=== PATIENT | female | born 1940 | race African-American/Black ===

== ENCOUNTER → 2017-01-22 | Outpatient (CLI) | payer OTHER ==
[~2017-01-22] VITALS: Ht 160 cm; Wt 86.2 kg
[~2017-01-22] MED LIST: ACID CONTROL75 MG PO; ALIGN4 MG PO; ALTACE5 M1 PO; AMBIEN; AMBIEN 10 MG TA10 MG; AMBIEN 10 MG TA10 MG PO; AMBIEN PO; AMLODIPINE BESY10 MG PO; AMOXICILLIN 50500 M1 PO; ANASPAZ0.125 MG SL; ASA81BEC PO; BASE, PCCA RAPID1 GM; CARAFATE 1 GM TA1 G1 PO; CIPROFLOXACIN500 M1 PO; CLEOCIN HCL300 MG PO; COLACE100 MG OR; COLACE100 MG PO; COMBIGAN EYE DR10 ML; COMBIGAN EYE DR10 ML OPHTHALMIC; CRESTOR10 MG PO; DIAZEPAM 5 MG5 MG PO; DOXYCYCLINE 10100 M1 OR; GABAPENTIN100 MG PO; GLUCOPHAGE; GLUCOPHAGE1000 MG PO; GLUCOPHAGE500 MG; GLUCOPHAGE500 MG OR; GLUCOPHAGE500 MG PO; HYDROCODON-ACE1 EAC5 PO; HYDROCODON-ACE1 EAC7 PO; HYDROCODON-ACE1 EAC8 PO; HYDROCODONE-AP1 EAC6 PO; LEVAQUIN 500 M500 MG PO; LIDODERM; LIPITOR 20 MG T20 M1 PO; LOPRESSOR 50 MG50 M1 PO; LOSARTAN POTAS100 MG PO; LOSARTAN POTASS50 MG PO; LOVASTATIN 20 M20 MG PO; MAGNESIUM CITR296 ML PO; MEDROL DOSPAK21 TAB; MIRALAX255 GM PO; NEURONTIN 300300 M1 PO; NEURONTIN600 MG; NEURONTIN600 MG PO; NORCO 10-325 T1 EACH PO; NORCO 5-325 TA1 EACH PO; NOVOLOG100 UNIT/1; OMEPRAZOLE40 MG PO; ONDANSETRON HCL4 M2 PO; OXECTA5 MG; PENICILLIN V P500 MG PO; PEPCID40 MG PO; PERCOCET 10-321 EACH PO; PERCOCET 5-3251 EACH PO; PIOGLITAZONE15 MG; PLAVIX 75 MG TA75 M1 PO; PLAVIX 75 MG TA75 MG PO; PLENDIL10 MG PO; PRAVACHOL40 MG OR; TESSALON PERLE100 MG; TESSALON PERLE100 MG PO; TRAVATAN Z5 ML OPHTHALMIC; TUSSIONEX PENN473 ML PO; TYLENOL325 MG PO; VENTOLIN HFA 1818 GM INH; VIBRAMYCIN 100100 M2 PO; VICODIN; VITAMIN D1000 UNI1 OR; VITAMIN D31000 UNI2 PO; VOLTAREN GEL 1100 G1; XANAX 1 MG TABLE1 MG PO; XANAX1 MG PO; ZANTAC 150MG T150 MG PO; ZOCOR40 MG PO; ZOFRAN ODT4 MG PO; ZOLPIDEM TARTRA10 MG PO; ZPAK PO
--- NOTE | ~2017-01-22 | S ---
[facility] [place] [address] SURGICAL PATH RPT PROCEDURE Name: LORETTA ELAM Room #: REG CLYevgeniy MJeo.#: [id number] Admission: 01/22/17 Date of : 42 Discharge: Report #: [id number] Path Case #: [id number] PATHOLOGY REPORT COLLECTION DATE: 01/22/2017 RECEIVED DATE: 01/22/2017 SUBMITTING PHYS: Dr. Jl Melendez OTHER PHYS: Dr. Brooks Pettit SPECIMEN(S) RECEIVED: A.Polyp bx ascending colon B.Polyp bx sigmoid colon * * * * * * * * * * * * FINAL DIAGNOSIS: A. Polyp, ascending colon polyp, endoscopic biopsy: - Tubular adenoma. - Negative for high-grade dysplasia. B. Polyp, sigmoid colon, endoscopic biopsy: - Hyperplastic polyp. - Negative for dysplasia. (IUV:mgr; d/t: 01/25/17) PATHOLOGIST: Darlin Miller M.D. REPORT ELECTRONICALLY SIGNED BY: Darlin Miller M.D. DATE/TIME: 01/25/2017 16:09 * * * * * * * * * * * * GROSS PATHOLOGY: A. Received in formalin labeled "Loertta Elam, polyp biopsy ascending colon," are 2 segments of pinzon soft tissue measuring 0.4 x 0.3 x 0.2 cm in aggregate dimensions and ranging from 0.2 to 0.4 cm in maximum dimension. The specimen is submitted entirely in cassette A1. B. Received in formalin labeled "Loretta Jed, polyp biopsy sigmoid colon," is a segment of pinzon soft tissue measuring 0.4 cm in maximum dimension. The specimen is submitted entirely in cassette B1. (KAH; 01/22/2017) CLINICAL HISTORY: Pre-op diagnosis: Screening, family history of CCA Post-op diagnosis: Polyp INITIAL CPT CODE(S): A; [address] [facility] [place] [address] SURGICAL PATH RPT PROCEDURE Name: LORETTA ELAM Room #: REG CLI Lucia#: [id number] Admission: 01/22/17 Date of : 42 Discharge: Report #: [id number] Path Case #: [id number]; [id number] Professional services performed by [facility] at [address], [place] [address] Technical services performed by [facility] at [address] [place] [address], [facility] [address] [address]. [facility] [address] [place] [address] PHONE: [phone] DIRECTOR: Sonu Cornelius M.D. * * * END OF REPORT * * *
--- NOTE | ~2017-01-22 | P ---
[facility] [place] [address] PROCEDURE REPORT Name: MARSHALL ELAM Room #: REG [facility]#: [id number] Admission: 01/22/17 Attend Phys: Jl Mcknight Discharge: Date of : 42 Report #: [id number] THIS REPORT FOR: //name// CC: Jl Pettit MD DATE OF SERVICE: 01/22/2017 PROCEDURE PERFORMED: Colonoscopy with biopsies. HISTORY OF PRESENT ILLNESS: The patient is a 76-year-old female who presents today for screening colonoscopy. She has family history of colon cancer in her sister. Last colonoscopy was 5 years ago, was essentially negative. The patient denies any symptoms other than constipation at times. DESCRIPTION OF PROCEDURE: The risks and benefits of the procedure were explained to the patient, those risks including but not limited to bleeding, perforation, the risk of sedation. She understood these risks and gave informed consent. Sedation was given using propofol per anesthesia. Next, a digital rectal exam was initially performed, which was normal. Next, using a standard InspireMDinon colonoscope, the scope was placed in the patient's anus and advanced under direct vision to the cecum. The overall prep was good. Cecum and ileocecal valve were normal in appearance. In the ascending colon, a 3 mm sessile polyp was noted. This was removed with cold forceps, otherwise normal. Transverse, descending colon were normal. Multiple diverticula were noted in the sigmoid colon, no evidence of inflammation. Another 3 mm sessile polyp was noted in the sigmoid colon. This was also removed by cold forceps. The rectal mucosa was normal. On retroflexion, small nonbleeding internal hemorrhoids were noted, otherwise normal colonoscopy. The scope was then withdrawn and the procedure terminated. The patient tolerated the procedure well. IMPRESSION: 1. Two small colonic polyps. 2. Sigmoid diverticulosis. 3. Small internal hemorrhoids. 4. Otherwise, normal colonoscopy. RECOMMENDATIONS: 1. Await biopsy results. 2. Repeat colonoscopy in [address] [address] PROCEDURE REPORT Name: MARSHALL ELAM Room #: REG Yevgeniy Myers#: [id number] Admission: 01/22/17 Attend Phys: Jl Mcknight Discharge: Date of : 42 Report #: [id number] Thank you for allowing me to participate in her care. <ELECTRONICALLY SIGNED> By: Jl Melendez MD 01/22/17 1628 1055 1245 Jl Melendez MD /nt
== END ==
LOC: GI 08:16
DX: Z12.11 Encounter for screening for malignant neoplasm of colon (principal); K63.5 Polyp of colon; K57.30 Diverticulosis of large intestine without perforation or abscess without bleeding; K64.8 Other hemorrhoids; I10 Essential (primary) hypertension; K21.9 Gastro-esophageal reflux disease without esophagitis; M46.90 Unspecified inflammatory spondylopathy, site unspecified; E11.9 Type 2 diabetes mellitus without complications; F17.200 Nicotine dependence, unspecified, uncomplicated; Z86.73 Personal history of transient ischemic attack (TIA), and cerebral infarction without residual deficits; Z90.710 Acquired absence of both cervix and uterus
CPT/HCPCS: 62110; 62900

== ENCOUNTER 2017-02-09 15:04 | Emergency (ER) | payer OTHER ==
[~2017-02-09] VITALS: Ht 157.5 cm; Wt 83.9 kg
[2017-02-09 15:26] LABS: URINE BILIRUBIN NEGATIVE (Negative); URINE BLOOD TRACE (Negative); URINE COLOR YELLOW; URINE GLUCOSE-RANDOM* NEGATIVE (Negative); URINE KETONES NEGATIVE (Negative); URINE LEUKOCYTES-REFLEX 2+ (Negative); URINE PROTEIN (DIPSTICK) NEGATIVE (Negative); URINE UROBILINOGEN 0.2 E.U./dl (0.2-1.0)
[2017-02-09 15:33] LABS: ABSOLUTE NEUTROPHILS 2.4 thou/uL (1.4-8.2); EOSINOPHILS 2.9 % (0.0-3.0); HEMATOCRIT 40.6 % (37.0-47.0); HEMOGLOBIN 13.3 gm/dL (12.0-15.0); LYMPHOCYTES 32.9 % (24.0-44.0); MCHC 32.8 g/dL (28.0-37.0); MCV 94.5 fL (80.0-100.0); MONOCYTES 9.3 % (1.0-8.0); PLATELET COUNT 203 thou/uL (150-400); POLYS 53.9 % (36.0-66.0); RDW 16.7 % (10.5-14.5); WBC 4.5 thou/uL (4.0-11.0)
[2017-02-09 15:35] LABS: MANUAL DIFF NO
[2017-02-09 15:36] LABS: SQUAMOUS >10 Many /LPF (0-3)
[2017-02-09 15:37] LABS: CASTS None Seen /LPF (None Seen); CRYSTALS None Seen /LPF (None Seen); URINE RBC 0-2 Rare /HPF (0-2); URINE WBC-REFLEX 6-15 Few /HPF (0-5)
[2017-02-09 15:38] LABS: RENAL EPITHELIAL CELLS 0-3 Few /LPF (None Seen); TRANSITIONAL EPITHEL CELL 0-3 Few /LPF (None Seen)
[2017-02-09 15:47] LABS: CALCIUM 8.9 mg/dL (8.5-10.1); CREATININE 0.9 mg/dL (0.6-1.0); POTASSIUM 3.7 mmol/L (3.5-5.1)
[2017-02-09 15:51] LABS: ALBUMIN 3.7 g/dL (3.4-5.0); TOTAL BILIRUBIN 0.4 mg/dL (<0.1-1.0); TOTAL PROTEIN 6.9 g/dL (6.4-8.2)
[2017-02-09] MEDS ORDERED: COLACE100 MG PO (18:04)
[2017-02-09] MEDS ORDERED: BENTYL 20 MG TA20 M1 PO (18:04)
== END 2017-02-09 18:19 | disposition home or self-care (01) ==
LOC: ER 15:04
PROVIDERS: Emergency Medicine
DX: R10.9 Unspecified abdominal pain (principal); I10 Essential (primary) hypertension; K21.9 Gastro-esophageal reflux disease without esophagitis; E11.40 Type 2 diabetes mellitus with diabetic neuropathy, unspecified; G25.81 Restless legs syndrome; M79.7 Fibromyalgia; M19.90 Unspecified osteoarthritis, unspecified site; Z86.73 Personal history of transient ischemic attack (TIA), and cerebral infarction without residual deficits; Z90.49 Acquired absence of other specified parts of digestive tract; Z90.710 Acquired absence of both cervix and uterus; Z88.5 Allergy status to narcotic agent; Z91.040 Latex allergy status; Z88.8 Allergy status to other drugs, medicaments and biological substances

== ENCOUNTER → 2017-02-15 | Outpatient (CLI) | payer OTHER ==
[~2017-02-15] MED LIST changes: +BENTYL 20 MG TA20 M1 PO
== END ==
LOC: ULTRA 09:41
DX: N64.4 Mastodynia (principal)

== ENCOUNTER 2017-05-31 12:44 | Emergency (ER) | payer OTHER ==
[~2017-05-31] VITALS: Ht 157.5 cm; Wt 85.7 kg
--- NOTE | ~2017-05-31 | EKG ---
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 Supervisor: [id number] : 1940 Requested By: Ophelia Smith Order Number: [id number] MD: Miguel Alcantara Measurements Intervals [place] Rate: 74 P: 74 CT: 158 QRS: 66 QRSD: 87 T: 32 QT: 389 QTc: 432 Interpretive Statements Sinus rhythm No significant abnormality Compared to ECG 08/20/2016 20:18:39 No significant change was found Electronically Signed On 06-01-2017 13:07:25 CDT by Miguel Alcantara [email or web address] <ELECTRONICALLY SIGNED> By: Miguel Alcantara MD, [facility] 06/01/17 1307 1357 56 Miguel Alcantara MD, FACC /EPI
[2017-05-31] MEDS ORDERED: ALIGN4 MG PO (13:12)
[2017-05-31 13:56] LABS: ABSOLUTE NEUTROPHILS 2.2 thou/uL (1.4-8.2); BASOPHILS 1.1 % (0.0-2.0); HEMATOCRIT 37.8 % (37.0-47.0); HEMOGLOBIN 12.4 gm/dL (12.0-15.0); LYMPHOCYTES 28.4 % (24.0-44.0); MCH 30.9 pg (26.0-34.0); MCHC 32.8 g/dL (28.0-37.0); MCV 94.4 fL (80.0-100.0); MONOCYTES 9.5 % (1.0-8.0); PLATELET COUNT 167 thou/uL (150-400); RBC 4.01 mil/uL (4.20-5.00); RDW 16.3 % (10.5-14.5); WBC 3.9 thou/uL (4.0-11.0)
[2017-05-31 13:59] LABS: MANUAL DIFF NO
[2017-05-31 14:04] LABS: ANION GAP 3 mmol/L (7-16); BUN 11 mg/dL (7-18); CALCIUM 9.3 mg/dL (8.5-10.1); CHLORIDE 109 mmol/L (98-107); CO2 33 mmol/L (21-32); CREATININE 1.1 mg/dL (0.6-1.0); GLUCOSE 166 mg/dL (74-106); POTASSIUM 4.4 mmol/L (3.5-5.1); SODIUM 145 mmol/L (136-145)
[2017-05-31 14:13] LABS: TROPONIN-I < 0.04 ng/mL (<0.04-0.07)
[2017-05-31] MEDS ORDERED: GUAIFEN-CODEINE10 ML PO (14:47)
== END 2017-05-31 15:15 | disposition home or self-care (01) ==
LOC: ER 12:44
PROVIDERS: Emergency Medicine
DX: J06.9 Acute upper respiratory infection, unspecified (principal); I10 Essential (primary) hypertension; K21.9 Gastro-esophageal reflux disease without esophagitis; M79.7 Fibromyalgia; E11.40 Type 2 diabetes mellitus with diabetic neuropathy, unspecified; G25.81 Restless legs syndrome; J44.9 Chronic obstructive pulmonary disease, unspecified; M19.90 Unspecified osteoarthritis, unspecified site; F17.210 Nicotine dependence, cigarettes, uncomplicated; Z90.49 Acquired absence of other specified parts of digestive tract; Z90.710 Acquired absence of both cervix and uterus; Z86.73 Personal history of transient ischemic attack (TIA), and cerebral infarction without residual deficits; Z88.5 Allergy status to narcotic agent; Z88.8 Allergy status to other drugs, medicaments and biological substances; Z88.2 Allergy status to sulfonamides; Z91.040 Latex allergy status

== ENCOUNTER 2017-10-22 17:04 | Emergency (ER) | payer OTHER ==
[~2017-10-22] VITALS: Ht 157.5 cm; Wt 86.2 kg
[~2017-10-22 17:04] MED LIST changes: +GUAIFEN-CODEINE10 ML PO
[2017-10-22 17:05] VITALS: BP 157/88
[2017-10-22] MEDS ORDERED: NAPROSYN500 MG PO (17:28)
[2017-10-22] MEDS ORDERED: HYDROCODONE-AP1 EAC6 PO (17:28)
[2018-05-31] MEDS ORDERED: PLAVIX 75 MG TA75 M1 PO (16:42)
[2018-06-03] MEDS ORDERED: HYOSCYAMINE0.125 M1 SUBLING (18:26)
[2018-06-03] MEDS ORDERED: COLACE100 MG PO (18:29)
[2018-06-03] MEDS ORDERED: BISACODYL SUPP10 MG RECTAL (18:29)
[2018-06-03] MEDS ORDERED: SENNA8.6 MG PO (18:29)
[2018-06-03] MEDS ORDERED: CITRATE OF MAG296 M1 PO (18:29)
[2018-06-03] MEDS ORDERED: ULTRACET TABLET1 TAB PO (18:30)
[2018-06-05] MEDS ORDERED: MIRALAX17 GM PO (13:04)
== END 2017-10-22 17:37 | disposition home or self-care (01) ==
LOC: ER 17:04
DX: M70.22 Olecranon bursitis, left elbow (principal); I10 Essential (primary) hypertension; K21.9 Gastro-esophageal reflux disease without esophagitis; M19.90 Unspecified osteoarthritis, unspecified site; M79.7 Fibromyalgia; E11.40 Type 2 diabetes mellitus with diabetic neuropathy, unspecified; G25.81 Restless legs syndrome; F17.210 Nicotine dependence, cigarettes, uncomplicated; Z88.5 Allergy status to narcotic agent; Z90.710 Acquired absence of both cervix and uterus; Z90.49 Acquired absence of other specified parts of digestive tract; Z86.73 Personal history of transient ischemic attack (TIA), and cerebral infarction without residual deficits; Z88.2 Allergy status to sulfonamides; Z91.040 Latex allergy status; Z88.8 Allergy status to other drugs, medicaments and biological substances; Y93.89 Activity, other specified

== ENCOUNTER 2018-10-10 19:38 | Inpatient (IN) | payer OTHER ==
[~2018-10-10] VITALS: Ht 157.5 cm; Wt 86.1 kg
[~2018-10-10 19:38] MED LIST changes: +BISACODYL SUPP10 MG RECTAL; +CITRATE OF MAG296 M1 PO; +HYOSCYAMINE0.125 M1 SUBLING; +MIRALAX17 GM PO; +NAPROSYN500 MG PO; +SENNA8.6 MG PO; +ULTRACET TABLET1 TAB PO
[2018-10-10 19:39] VITALS: BP 132/64
[2018-10-10 20:45] LABS: ABSOLUTE NEUTROPHILS 3.8 thou/uL (1.4-8.2); BASOPHILS 0.5 % (0.0-2.0); EOSINOPHILS 2.1 % (0.0-3.0); HEMATOCRIT 40.4 % (37.0-47.0); HEMOGLOBIN 13.6 gm/dL (12.0-15.0); LYMPHOCYTES 26.6 % (24.0-44.0); MCH 31.8 pg (26.0-34.0); MCHC 33.6 g/dL (28.0-37.0); MCV 94.9 fL (80.0-100.0); MONOCYTES 8.3 % (1.0-8.0); PLATELET COUNT 170 thou/uL (150-400); POLYS 62.5 % (36.0-66.0); RBC 4.26 mil/uL (4.20-5.00); RDW 16.9 % (10.5-14.5); WBC 6.1 thou/uL (4.0-11.0)
[2018-10-10 20:49] LABS: ANION GAP 7 mmol/L (7-16); BUN 13 mg/dL (7-18); CALCIUM 9.2 mg/dL (8.5-10.1); CHLORIDE 104 mmol/L (98-107); CO2 31 mmol/L (21-32); CREATININE 0.9 mg/dL (0.6-1.0); GLUCOSE 103 mg/dL (74-106); POTASSIUM 3.2 mmol/L (3.5-5.1); SODIUM 142 mmol/L (136-145)
[2018-10-10 20:58] LABS: ALBUMIN 3.8 g/dL (3.4-5.0); SGOT 12 U/L (15-37); SGPT 14 U/L (30-65); TOTAL BILIRUBIN 0.5 mg/dL (<0.1-1.0); TOTAL PROTEIN 7.1 g/dL (6.4-8.2); TROPONIN-I <0.06 ng/mL (<0.06)
[2018-10-10 21:03] VITALS: BP 128/65
[2018-10-10 22:10] VITALS: BP 131/59
[2018-10-10 22:27] VITALS: BP 131/59
[2018-10-10 23:00] VITALS: BP 133/61
[2018-10-11] MEDS ORDERED: ZETIA10 MG PO (01:29)
[2018-10-11 02:39] LABS: ANION GAP 5 mmol/L (7-16); BUN 14 mg/dL (7-18); CALCIUM 9.2 mg/dL (8.5-10.1); CHLORIDE 106 mmol/L (98-107); CO2 33 mmol/L (21-32); GLUCOSE 120 mg/dL (74-106); POTASSIUM 3.6 mmol/L (3.5-5.1); SODIUM 144 mmol/L (136-145)
[2018-10-11 02:44] LABS: CHOLESTEROL 150 mg/dL (<200); HDL CHOLESTEROL 73 mg/dL (>40); LDL CHOLESTEROL 66 mg/dL (<100); TC:HDL 2.1 Ratio (Not establshd); TRIGLYCERIDE 58 mg/dL (<150); TROPONIN-I <0.06 ng/mL (<0.06); VLDL 12 mg/dL (<40)
[2018-10-11 03:02] LABS: SERUM ASSESSMENT Clear
[2018-10-11 04:45] VITALS: BP 134/63
--- NOTE | 2018-10-11 06:58 | NUR ---
ASSUMED PT CARE AT 1900 WITH BEDSIDE REPORT TAKE, PT IS ALERT AND ORIENTED WITH NO SIGN OF DISTRESS NOTED IN PT. DENIES ANY NEED AT THIS TIME. PT IS SITTING ON THE CHAIR WITH PT STABLE SCHEDULED MED ADMINISTERED TO PT, PT'S BLOOD SUGAR IS CHECKED AND INTERVENTION DONE. PT IS STABLE. PT IS STILL IN AFIB, DENIES ANY FURTHER NEEDS AT THIS TIME.
--- NOTE | 2018-10-11 07:24 | NUR ---
PT WAS AN ER ADMIT AT 2245 WITH CHEST PAIN, PT IS ALERT AND ORIENTED WITH NO SIGN OF DISTRESS NOTED. MORPHINE ADMINISTERED TO PT FOR CHEST PAIN. ADMISSION ASSESSMENT AND EDUCATION COMPLETED. DENIES ANY FURTHER NEEDS AT THIS TIME.
[2018-10-11 08:10] VITALS: BP 118/50
--- NOTE | 2018-10-11 13:12 | EKG ---
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
--- NOTE | 2018-10-11 13:13 | EKG ---
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
--- NOTE | 2018-10-11 13:23 | 2DMMODE ---
[facility] [address] [place] [address] 2 D/M-MODE ECHOCARDIOGRAM Name: MARSHALL ELAMARET Room #: 209-P ADM IN ..#: [id number] Admission: 10/10/18 Attend Phys: Haim Diaz MD Discharge: Date of : 42 Date of Service: 10/11/18 1323 Report #: [id number] THIS REPORT FOR: //name// APPROVED REPORT Study performed: 10/11/2018 10:24:26 EXAM: Comprehensive 2D, Doppler, and color-flow Echocardiogram Patient Location: Bedside Room #: 209 Status: routine BSA: 1.87 HR: 70 bpm BP: 118/50 mmHg Rhythm: NSR Other Information Study Quality: Adequate Indications COPD Diabetes CAD Chest Pain Hypertension/HDD 2D Dimensions RVDd: 38.78 mm IVSd: 8.73 (7-11mm) LVOT Diam: 18.59 (18-24mm) LVDd: 40.32 mm PWd: 9.04 (7-11mm) Ascending Ao: 29.58 (22-36mm) LVDs: 28.27 (25-40mm) Aortic Root: 28.70 mm IVC: 21.00 mm Volumes Left Atrial Volume (Systole) Single Plane 4CH: 40.48 mL Single Plane 2CH: 37.00 mL LA ESV Index: 22.00 mL/m2 Aortic Valve AoV Peak Nico.: 1.64 m/s AO Peak Gr.: 10.73 mmHg LVOT Max P.54 mmHg LVOT Max V: 1.07 m/s ANTONINO Vmax: 1.76 cm2 [facility] [address] [place] [address] 2 D/M-MODE ECHOCARDIOGRAM Name: MARSHALL ELAMT Room #: 209-P [facility] IN ..#: [id number] Admission: 10/10/18 Attend Phys: Haim Diaz MD Discharge: Date of : 42 Date of Service: 10/11/18 1323 Report #: [id number] Mitral Valve E/A Ratio: 0.9 MV Decel. Time: 349.10 ms MV E Max Nico.: 0.94 m/s MV A Nico.: 1.09 m/s MV PHT: 101.24 ms IVRT: 124.57 ms Pulmonary Valve PV Peak Nico.: 0.85 m/s PV Peak Gr.: 2.91 mmHg Pulmonary Vein P Vein S: 0.42 m/s P Vein A: 0.29 m/s P Vein D: 0.38 m/s P Vein A Dur.: 156.9 msec P Vein S/D Ratio: 1.11 Tricuspid Valve TR Peak Nico.: 2.81 m/s TR Peak Gr.: 31.57 mmHg PA Pressure: 47.00 mmHg Left Ventricle The left ventricle is normal size. There is normal LV segmental wall motion. There is normal left ventricular wall thickness. The left ventricular systolic function is normal. The left ventricular ejection fraction is within the normal range. LVEF is 55-60%. Grade I - abnormal relaxation pattern. Right Ventricle The right ventricle is normal size. The right ventricular systolic function is normal. Atria The left atrium size is normal. The right atrium size is normal. Aortic Valve The aortic valve is normal in structure. No aortic regurgitation is present. There is no aortic valvular stenosis. Mitral Valve The mitral valve is normal in structure. There is no mitral valve regurgitation noted. No evidence of mitral valve stenosis. Tricuspid Valve The tricuspid valve is normal in structure[place] [address] 2 D/M-MODE ECHOCARDIOGRAM Name: MARSHALL ELAM VICTOR HUGO Room #: 209-P [facility] IN .R.#: [id number] Admission: 10/10/18 Attend Phys: Haim Diaz MD Discharge: Date of : 42 Date of Service: 10/11/18 1323 Report #: [id number] tricuspid regurgitation. Estimated PAP 47 mmHg. There is moderate pulmonary hypertension. Pulmonic Valve The pulmonary valve is normal in structure. There is no pulmonic valvular regurgitation. Great Vessels The aortic root is normal in size. IVC is dilated and collapses >50% with inspiration. Pericardium There is no pericardial effusion. <Conclusion> LVEF is 55-60%. There is normal LV segmental wall motion. There is no aortic valvular stenosis. No aortic regurgitation is present. No evidence of mitral valve stenosis. There is no mitral valve regurgitation noted. There is trace to mild tricuspid regurgitation. Estimated PAP 47 mmHg. There is moderate pulmonary hypertension. Grade I - abnormal relaxation pattern. <ELECTRONICALLY SIGNED> By: David Amos MD, FACC 10/11/18 1323 1323 1323 David Amos MD, FACC /INF
[2018-10-11 14:20] VITALS: BP 142/79
--- NOTE | 2018-10-11 15:40 | NUR ---
ASSESSMENT-PT LIVES AT HOME WITH HER BUT HE IS CURRENTLY AT WITH CANCER TREATMENT AND HAD SURGERY. DTR USUALLY THERE TOO BUT NOW AT REHAB. PT WALKS ON HER OWN AND DOES HER OWN ADLS. 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 PT HAS NO DME. SISTER AT BEDSIDE. PT VOICES NO CONCERNS RELATED TO DC AT THIS TIME. FOLLOWING TO ASSIST WITH DC PLANNING.
[2018-10-11 16:15] VITALS: BP 110/41
--- NOTE | 2018-10-11 17:30 | NUR ---
ASSESSMENTS COMPLETED AND DOCUMENTED. NO S/SX OF CARDIAC OR RESP DISTRESS. IV AND TELE REMOVED. DISCHARGE INSTRUCTIONS REVIEWED. PT ESCORTED OUT BY STAFF WITH FAMILY MEMBER AND ALL BELONGINGS.
[2018-10-11 17:38] VITALS: BP 110/41
[2018-10-11 18:10] LABS: GLYCOHEMOGLOBIN (HGB A1C) 5.3 % (4.8-5.6)
--- NOTE | 2018-10-14 12:42 | HC ---
[facility] [place] [address] CONSULTATION Name: MARSHALL ELAM Room #: 209-P [facility] IN .R.#: [id number] Admission: 10/10/18 Attend Phys: Haim Diaz MD Discharge: 10/11/18 Date of : 42 Report #: [id number] THIS REPORT FOR: //name// CC: Brooks Diaz PRIMARY CARE PHYSICIAN: Dr. Brooks Pettit. MEDICAL LAB ASSISTANT: Dr. Terrence Roberts. CHIEF COMPLAINT: Chest pain. HISTORY OF PRESENT ILLNESS: The patient is a 78-year-old female with a history of prior coronary stenting, had sudden onset Wednesday night of a left chest discomfort, which was dull in nature, radiating downwards her left epigastrium all the way to her left lower back. It was not associated with shortness of breath or diaphoresis. She went to the Emergency Room, her ECG did not show an acute ST segment changes, and she has had 2 negative cardiac troponin levels. She has not really had any significant symptoms prior to this weekend. She had been feeling mostly sick all day and had some nausea and vomiting and anorexia. Denies chills. PAST MEDICAL HISTORY: Significant for coronary artery disease. She has had apparently 6 prior coronary stents placed in different coronary interventions. She has COPD, degenerative joint disease, hyperlipidemia. HOME MEDICATIONS: Include aspirin, Plavix, Actos, amlodipine 10 mg daily, losartan 100 mg daily, omeprazole 40 mg daily, zolpidem 10 mg at bedtime. ALLERGIES: GABAPENTIN, CODEINE, LATEX, RAMIPRIL AND SULFA. PAST SURGICAL HISTORY: Hysterectomy and cholecystectomy. SOCIAL HISTORY: She is an active smoker. REVIEW OF SYSTEMS: NEUROLOGIC: She has a prior history of CVA. No headaches or blurry vision. CARDIOVASCULAR: Positive chest pain. Positive shortness of breath. No orthopnea, no PND, no edema. SKIN: No rashes. GENERAL: No fevers or chills. ABDOMEN: Positive abdominal discomfort and positive nausea and vomiting, but no hematemesis or melena. RENAL: No history of kidney failure. [facility] [address] [place] [address] CONSULTATION Name: MARIALUISAMARSHALL Room #: 209-P [facility] [id number] Admission: 10/10/18 Attend Phys: Haim Diaz MD Discharge: 10/11/18 Date of : 42 Report #: [id number] PHYSICAL EXAMINATION: VITAL SIGNS: Blood pressure is 134/63, pulse is 73, sinus rhythm, respiratory rate 18, O2 sats 94% on 2 liters. GENERAL: This is a pleasant elderly female. She is somewhat of a poor historian, but she is in no apparent distress. HEENT: Eyes, EOMs are intact. No facial asymmetry. NECK: Supple. No jugular venous distention. CARDIOVASCULAR: Regular, I cannot hear a murmur. If you palpate her chest wall and upper abdomen, she does have reproducible discomfort. There is no rebound or guarding though. PULMONARY: There is no wheezing or rales. EXTREMITIES: There is no peripheral edema noted. NEUROLOGIC: No focal deficits. LABORATORY DATA: ECG shows sinus rhythm, nonspecific ST-segment abnormalities. Hemoglobin 13.6, white blood cell count 6.1, platelet count 170,000. Sodium is 144, potassium 3.6, chloride is 106, CO2 is 33, BUN is 14, creatinine is 1.0. Troponin I is 0.06 x 2 sets. Total cholesterol is 150, LDL 66, HDL 73. Chest x-ray shows no acute cardiopulmonary abnormality. IMPRESSION: 1. Chest discomfort and epigastric discomfort, her symptoms are reproducible, somewhat atypical for angina, but this patient poses a very high risk given her continued smoking and history of previous coronary stenting. I have arranged for further evaluation with a Lexiscan nuclear stress test. 2. Coronary artery disease. Continue with current medical therapy including aspirin and Plavix. It is noted she is not on a statin. She probably has some degree of intolerance. I do not have those records. 3. Hypertension, stable. 4. Diabetes mellitus. 5. Tobacco abuse. Cessation is recommended. <ELECTRONICALLY SIGNED> By: David Amos MD, FACC 10/14/18 1242 0841 1045 David Amos MD, FACC /nt
== END 2018-10-11 19:10 | disposition home or self-care (01) | DRG 313 ==
LOC: ER 19:38 → 2N 22:01 → EROBS 22:01 → 2N 22:34
PROVIDERS: Emergency Medicine; Nurse Practitioner Family; ADMIT Hospitalist
DX: R07.89 Other chest pain (principal); I25.10 Atherosclerotic heart disease of native coronary artery without angina pectoris; I10 Essential (primary) hypertension; F17.210 Nicotine dependence, cigarettes, uncomplicated; E78.5 Hyperlipidemia, unspecified; G89.4 Chronic pain syndrome; H54.40 Blindness, one eye, unspecified eye; J44.9 Chronic obstructive pulmonary disease, unspecified; K21.9 Gastro-esophageal reflux disease without esophagitis; M79.7 Fibromyalgia; E11.40 Type 2 diabetes mellitus with diabetic neuropathy, unspecified; M46.90 Unspecified inflammatory spondylopathy, site unspecified; E11.42 Type 2 diabetes mellitus with diabetic polyneuropathy; K59.00 Constipation, unspecified; E11.9 Type 2 diabetes mellitus without complications; Z95.5 Presence of coronary angioplasty implant and graft; Z90.49 Acquired absence of other specified parts of digestive tract; Z90.710 Acquired absence of both cervix and uterus; Z86.73 Personal history of transient ischemic attack (TIA), and cerebral infarction without residual deficits; Z79.899 Other long term (current) drug therapy; Z79.1 Long term (current) use of non-steroidal anti-inflammatories (NSAID); Z88.5 Allergy status to narcotic agent; Z88.2 Allergy status to sulfonamides; Z88.8 Allergy status to other drugs, medicaments and biological substances; Z91.040 Latex allergy status
CPT/HCPCS: 10081

== ENCOUNTER 2019-04-11 13:58 | Inpatient (IN) | payer OTHER ==
[~2019-04-11] VITALS: Ht 157.5 cm; Wt 85.7 kg
[~2019-04-11 13:58] MED LIST changes: +ZETIA10 MG PO
[2019-04-11 13:59] VITALS: BP 160/74
[2019-04-11 14:36] LABS: HEMATOCRIT 40.9 % (37.0-47.0); HEMOGLOBIN 13.7 gm/dL (12.0-15.0); MCH 32.1 pg (26.0-34.0); MCHC 33.5 g/dL (28.0-37.0); MCV 95.7 fL (80.0-100.0); PLATELET COUNT 195 thou/uL (150-400); RBC 4.27 mil/uL (4.20-5.00); RDW 16.3 % (10.5-14.5); WBC 3.7 thou/uL (4.0-11.0)
[2019-04-11 14:47] LABS: ANION GAP 5 mmol/L (7-16); BUN 13 mg/dL (7-18); CALCIUM 9.1 mg/dL (8.5-10.1); CHLORIDE 105 mmol/L (98-107); CO2 33 mmol/L (21-32); CREATININE 0.9 mg/dL (0.6-1.0); GLUCOSE 91 mg/dL (74-106); POTASSIUM 4.5 mmol/L (3.5-5.1); SODIUM 143 mmol/L (136-145)
[2019-04-11 14:57] LABS: ALBUMIN 3.8 g/dL (3.4-5.0); LIPASE 43 U/L (73-393); SGOT 22 U/L (15-37); SGPT 21 U/L (30-65); TOTAL BILIRUBIN 0.6 mg/dL (<0.1-1.0); TOTAL PROTEIN 7.4 g/dL (6.4-8.2); TROPONIN-I <0.06 ng/mL (<0.06)
[2019-04-11 15:07] LABS: ABSOLUTE NEUTROPHILS 1.7 thou/uL (1.4-8.2)
[2019-04-11 15:08] LABS: ANISOCYTOSIS 1+
--- NOTE | 2019-04-11 16:30 | EKG ---
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: CORBY : 1940 Requested By: Aminata Reynolds Order Number: [id number] MD: Migeul Alcantara Measurements Intervals [place] Rate: 81 P: 79 AR: 157 QRS: 89 QRSD: 122 T: 37 QT: 397 QTc: 461 Interpretive Statements Sinus rhythm Right bundle branch block Compared to ECG 10/11/2018 06:41:59 Right bundle-branch block now present Electronically Signed On 04-11-2019 16:30:39 CDT by Miguel Alcantara [email or web address] ��������������������������������������������� <ELECTRONICALLY SIGNED> ���������������������������������������� By: Miguel Alcantara MD, [facility] ��������������������������������������������� 04/11/19 1630 1407 140 Miguel Alcantara MD, [facility] /EPI
[2019-04-11 16:51] VITALS: BP 141/66
[2019-04-11 17:09] VITALS: BP 146/64
[2019-04-11 18:15] VITALS: BP 152/61
--- NOTE | 2019-04-11 18:58 | NUR ---
[age] OLD FEMALE ADMITTED TO CCU ROOM 200. PT WAS BROUGHT INTO THE ER PER DAUGHTER AFTER C/O CHEST PAIN THAT RADIATES TO HER BACK. PT IS ALERT AND ORIENTED TIMES FOUR. VSS, 96%2L, SR ON TELE. PT C/O TOOTH ACHE BUT REFUSED ONLY PAIN MEDICATIONS THAT WAS AVALIABLE AT THIS TIME. PT DAUGHTERS AT BEDSIDE DURING ADMISSION ASSESSMENT. TELE MONTIOR ISSUES WAS EXPLAINED TO PT AND SIGNED THE FORM.
[2019-04-11 20:12] VITALS: BP 138/55
[2019-04-12 00:51] VITALS: BP 127/53
--- NOTE | 2019-04-12 03:56 | NUR ---
PT RESTING IN BED. SR W/BBB ON MONITOR. PT HAS REQUIRED PRN PAIN MEDS SEVERAL TIMES THIS SHIFT. PT MOSTLY C/O MOUTH/TOOTH PAIN TO THE RIGHT SIDE. PT REMAINS ON 2L NC.
[2019-04-12 04:29] LABS: ALBUMIN 3.3 g/dL (3.4-5.0); ANION GAP 7 mmol/L (7-16); BUN 12 mg/dL (7-18); CALCIUM 8.4 mg/dL (8.5-10.1); CHLORIDE 107 mmol/L (98-107); CO2 31 mmol/L (21-32); CREATININE 0.9 mg/dL (0.6-1.0); GLUCOSE 86 mg/dL (74-106); PHOSPHORUS 3.7 mg/dL (2.5-4.9); POTASSIUM 3.7 mmol/L (3.5-5.1); SODIUM 145 mmol/L (136-145); TROPONIN-I <0.06 ng/mL (<0.06)
[2019-04-12 04:55] VITALS: BP 143/61
[2019-04-12 07:18] VITALS: BP 131/47
[2019-04-12 11:30] VITALS: BP 131/51
--- NOTE | 2019-04-12 14:06 | NUR ---
PT ALERT AND ORIENTED TIMES FOUR. VSS, 100%2L, SR ON TELE, PT C/O PAIN STATES MEDICATIONS NOT WORKING. DR CALLED MORPHINE ORDERED AND GIVEN WITH GOOD RELEIF. PT TOLERATES MEDS. EATS SMALL PORTIONS OF MEALS. PT UP TO RESTROOM WITH STANDBY ASSIST. PT AT BEDSIDE. PT SLOWLY PROGRESSING TOWRADS POC GOALS.
--- NOTE | 2019-04-12 15:55 | NUR ---
PT ARRIVED TO ROOM FROM CCU. PT UP IN BATHROOM, AT BEDSIDE. GAVE FRESH WATER.
[2019-04-12 16:44] VITALS: BP 144/60
--- NOTE | 2019-04-12 17:27 | NUR ---
PATIENT ADMITS WITH CHEST PAIN. HER SPOUSE AND DTR AT BEDSIDE. PATIENT REPORTS SHE LIVES IN INDEPENDENT HOME WITH AND DTR. ALL NEEDS ON ONE LEVEL. SHE DOES NOT DRIVE SHE IS BLIND IN LEFT EYE. SHE AMBULATES WITH NO ASSISTIVE DEVICE. DISCUSSED POSSIBLE NEED FOR [facility] [place]. SHE IS AGREEABLE AND PREFERS [facility] [place]. PCP IS DR GIBSON.
--- NOTE | 2019-04-12 19:22 | NUR ---
ADM MORPHINE 1MG IV FOR PAIN TO LOWER LEGS AND CHEST OF 11 ON 1-10 SCALE.
--- NOTE | 2019-04-13 04:17 | NUR ---
ASSUMED CARE AROUND 1899. AXOX4. C/O L CHEST PAIN, DECLINED NITROGLYCERIN. TX WITH MORPHINE. SHARP PAIN WITH EXERTION PER PT. VSS. REPORTS DECREASE IN PAIN WITH MORPHINE AND NORCO. NO S/S ACUTE DISTRESS NOTED OR REPORTED AT THIS TIME. WILL CONT TO MONITOR FOR ANY CHANGES IN CONDITION.
[2019-04-13 04:42] VITALS: BP 150/57
[2019-04-13 07:47] VITALS: BP 147/69
[2019-04-13] MEDS ORDERED: AMOXICILLIN 50500 M1 PO (09:05)
[2019-04-13] MEDS ORDERED: GABAPENTIN 100100 MG PO (09:07)
[2019-04-13] MEDS ORDERED: PREDNISONE 20 M20 M1 PO (09:10)
[2019-04-13 10:34] VITALS: BP 147/69
--- NOTE | 2019-04-13 11:03 | NUR ---
ASSUMED CARE 0700. ALERT X3, PAIN MANAGED WITH MEDICATIONS, EDUCATION ON RELAXATIONS TECHNIQUE REVIEWED. ABLE TO MAKE NEEDS KNOWN. STAND BY ASSIST. FALL PRECAUTIONS IN PLACE . CALL LIGHT IN REACH. WILL DC HOME TODAY.
--- NOTE | 2019-04-13 13:10 | NUR ---
DISCHARGE NOTE: SW reviewed chart and spoke with nursing and attending physician. Pt was transferred to from CCU and is medically stable for discharge home today with services. SW notified intake at [facility] of orders. [facility] is able to accept pt on service. Pt was discharged prior to SW visit. Contact info for [facility] placed in pt's discharge summary. Pt's family to provide transportation home. No additional SW needs identified at this time, but is available to assist should needs arise.
== END 2019-04-13 13:14 | disposition home health service (06) | DRG 206 ==
LOC: ER 13:58 → EROBS 15:59 → 2N 15:59 → 4W 04-12 15:55
PROVIDERS: Nurse Practitioner Family; ADMIT Hospitalist
DX: M94.0 Chondrocostal junction syndrome [Tietze] (principal); K21.9 Gastro-esophageal reflux disease without esophagitis; M46.90 Unspecified inflammatory spondylopathy, site unspecified; E11.40 Type 2 diabetes mellitus with diabetic neuropathy, unspecified; G25.81 Restless legs syndrome; K59.00 Constipation, unspecified; G89.29 Other chronic pain; I10 Essential (primary) hypertension; H54.62 Unqualified visual loss, left eye, normal vision right eye; J44.9 Chronic obstructive pulmonary disease, unspecified; F17.210 Nicotine dependence, cigarettes, uncomplicated; E66.9 Obesity, unspecified; G47.00 Insomnia, unspecified; K08.89 Other specified disorders of teeth and supporting structures; Z95.5 Presence of coronary angioplasty implant and graft; Z90.49 Acquired absence of other specified parts of digestive tract; Z90.710 Acquired absence of both cervix and uterus; Z86.73 Personal history of transient ischemic attack (TIA), and cerebral infarction without residual deficits; Z98.41 Cataract extraction status, right eye; Z87.81 Personal history of (healed) traumatic fracture; Z88.2 Allergy status to sulfonamides; Z88.8 Allergy status to other drugs, medicaments and biological substances; Z88.6 Allergy status to analgesic agent; Z91.040 Latex allergy status; Z79.82 Long term (current) use of aspirin; Z79.899 Other long term (current) drug therapy; Z68.34 Body mass index [BMI] 34.0-34.9, adult
CPT/HCPCS: 10047; 10081

== ENCOUNTER 2019-10-07 13:03 | Emergency (ER) | payer OTHER ==
[~2019-10-07] VITALS: Ht 157.5 cm; Wt 85.7 kg
[~2019-10-07 13:03] MED LIST changes: +GABAPENTIN 100100 MG PO; +PREDNISONE 20 M20 M1 PO
[2019-10-07] MEDS ORDERED: VENTOLIN HFA 1818 GM INH ×2 (15:33→15:34)
[2019-10-07] MEDS ORDERED: TESSALON PERLE100 MG PO ×2 (15:33→15:34)
[2019-10-07 15:36] VITALS: BP 132/76
== END 2019-10-07 15:38 | disposition home or self-care (01) ==
LOC: ER 13:03
DX: J98.01 Acute bronchospasm (principal); J06.9 Acute upper respiratory infection, unspecified; J44.9 Chronic obstructive pulmonary disease, unspecified; E11.40 Type 2 diabetes mellitus with diabetic neuropathy, unspecified; I10 Essential (primary) hypertension; F17.210 Nicotine dependence, cigarettes, uncomplicated; Z88.5 Allergy status to narcotic agent; Z88.2 Allergy status to sulfonamides; Z88.8 Allergy status to other drugs, medicaments and biological substances; Z91.040 Latex allergy status; Z90.710 Acquired absence of both cervix and uterus; Z86.73 Personal history of transient ischemic attack (TIA), and cerebral infarction without residual deficits

== ENCOUNTER → 2019-11-03 | Outpatient (CLI) | payer OTHER | LOC: CV 10-18 15:11 → NUC 11:45 | DX: I25.10 Atherosclerotic heart disease of native coronary artery without angina pectoris (principal); E11.9 Type 2 diabetes mellitus without complications; I10 Essential (primary) hypertension; Z95.5 Presence of coronary angioplasty implant and graft ==

== ENCOUNTER 2021-07-09 23:04 | Emergency (ER) | payer OTHER ==
[~2021-07-09] VITALS: Ht 165.1 cm; Wt 82.2 kg
[2021-07-10] MEDS ORDERED: PERCOCET 7.5-31 EAC1 PO (00:47)
[2021-07-10 01:49] VITALS: BP 145/75
== END 2021-07-10 01:50 | disposition home or self-care (01) ==
LOC: ER 23:04
DX: M25.562 Pain in left knee (principal); I10 Essential (primary) hypertension; I25.10 Atherosclerotic heart disease of native coronary artery without angina pectoris; K21.9 Gastro-esophageal reflux disease without esophagitis; M79.7 Fibromyalgia; E11.40 Type 2 diabetes mellitus with diabetic neuropathy, unspecified; J44.9 Chronic obstructive pulmonary disease, unspecified; F17.210 Nicotine dependence, cigarettes, uncomplicated; Z90.49 Acquired absence of other specified parts of digestive tract; Z90.89 Acquired absence of other organs; Z90.710 Acquired absence of both cervix and uterus; Z79.51 Long term (current) use of inhaled steroids; Z79.84 Long term (current) use of oral hypoglycemic drugs; Z79.82 Long term (current) use of aspirin; Z79.891 Long term (current) use of opiate analgesic; Z79.1 Long term (current) use of non-steroidal anti-inflammatories (NSAID); Z79.899 Other long term (current) drug therapy; Z88.5 Allergy status to narcotic agent; Z88.2 Allergy status to sulfonamides; Z88.8 Allergy status to other drugs, medicaments and biological substances; Z88.6 Allergy status to analgesic agent; Z91.040 Latex allergy status